=== PATIENT | male | born 1970 | race Caucasian/White ===

== ENCOUNTER 2020-01-12 20:44 | Emergency (ER) | payer OTHER ==
[~2020-01-12] VITALS: Ht 172.7 cm; Wt 82.1 kg
[2020-01-12 20:54] VITALS: BP 145/88
--- NOTE | 2020-01-12 20:58 | NUR ---
John marlow in [facility] - 01/12/20 at 2122 by [facility] PT TAKEN TO BED 9
--- NOTE | 2020-01-12 21:20 | NUR ---
49 YO MALE CO FEVER, DIZZINESS FOR X3D. PT STATES THAT HE DID PASS OUT AT WORK YESTERDAY BUT DID NOT BUMP HIS HEAD. NO NEURO DEFICETS NOTED. LUNG SOUNDS CLEAR IN ALL LOBES.
--- NOTE | 2020-01-12 21:21 | NUR ---
Dr. Vyas examining patient.
[2020-01-12 21:35] VITALS: BP 138/87
--- NOTE | 2020-01-12 21:36 | NUR ---
Patient discharged with v/s stable. Written and verbal after care instructions given and explained. Patient alert, oriented and verbalized understanding of instructions. Ambulatory with steady gait. All questions addressed prior to discharge. ID band removed. Patient advised to follow up with PMD. Rx of azithromycin, promethazine given. Patient educated on indication of medication including possible reaction and side effects. Opportunity to ask questions provided and answered.
== END 2020-01-12 21:36 | disposition home or self-care (01) ==
LOC: MED 20:44
DX: J02.8 Acute pharyngitis due to other specified organisms (principal); B96.89 Other specified bacterial agents as the cause of diseases classified elsewhere; B97.89 Other viral agents as the cause of diseases classified elsewhere; R03.0 Elevated blood-pressure reading, without diagnosis of hypertension
CPT/HCPCS: 99283

== ENCOUNTER 2021-07-22 09:29 | Emergency (ER) | payer OTHER ==
[~2021-07-22] VITALS: Ht 170.2 cm; Wt 85.7 kg
[2021-07-22 09:37] VITALS: BP 156/90
--- NOTE | 2021-07-22 09:46 | NUR ---
PT AMB TO BED 11.
--- NOTE | 2021-07-22 10:16 | NUR ---
Pt ambulated to restroom for void.
--- NOTE | 2021-07-22 10:16 | NUR ---
51 y/o M BIB self from home with c/c dizziness/lightheadness since 8AM while at work today. Patient A&Ox4, ambulatory, states left sided facial pressure that feels like "balloon, swelling/pressure." Patient states facial pain worsens with breathing in. Denies any pain at this time. Denies chest pain, fever, chills, N/V/D, slurred speech, facial droop. States no meds prior to arrival. Bed locked in lowest position, side rails x 1, call light in reach. PMH: Gastritis, omperazole Sx: cataracts
[2021-07-22] MEDS ORDERED: KETOROLAC 60 MG/2 ML VIAL IM ONE (11:10)
[2021-07-22] MEDS ORDERED: IBUP-2213 PO (11:32)
--- NOTE | 2021-07-22 11:35 | NUR ---
Pt states + relief 5/10 pain at this time.
[2021-07-22 11:39] VITALS: BP 129/80
== END 2021-07-22 11:55 | disposition home or self-care (01) ==
LOC: MED 09:29
DX: R42 Dizziness and giddiness (principal); R51.9 Headache, unspecified; R20.0 Anesthesia of skin; K21.9 Gastro-esophageal reflux disease without esophagitis
CPT/HCPCS: 81002; 96372; 99283; J1885